=== PATIENT | male | born 1940 | race Caucasian/White ===

== ENCOUNTER 2017-09-27 00:52 | Inpatient (IN) | payer MEDICARE ==
[~2017-09-27] VITALS: Ht 167.6 cm; Wt 81.6 kg
--- OUTSIDE RECORDS SUMMARY | 2017-09-27 00:55 | XMS REPORT ---
Author Author [facility] Address Unknown Phone Unavailable Care Team Providers Care Assistant Director Of Security Name Role Phone KULWINDER HAYDEN Unavailable Unavailable Problems This patient has no known problems. Allergies, Adverse Reactions, Alerts This patient has no known allergies or adverse reactions. Medications This patient has no known medications. Results Test Description Test Time Test Comments Text Results Atomic Results Result Comments PROTHROMBIN TIME/INR 2017-06-30 09:39:00 PROTIME (BEAKER) (test umxi=760) 23.4 seconds 11.7-14.7 INR (BEAKER) (test xlkp=713) 2.1 <=5.9 RECOMMENDED COUMADIN/WARFARIN INR THERAPY RANGESSTANDARD DOSE: 2.0 - 3.0 Includes: PROPHYLAXIS for venous thrombosis, systemic embolization; TREATMENT for venous thrombosis and/or pulmonary embolus.HIGH RISK: Target INR is 2.5-3.5 for patients with mechanical heart valves.
[2017-09-27] MEDS ORDERED: SODIUM CHLORIDE 0.9% 1000ML 2,000 ML ONE (01:24)
[2017-09-27] MEDS ORDERED: SODIUM CHLORIDE 0.9% 1000ML 1,000 ML IV ONE ×3 (01:30→03:15)
[2017-09-27 01:33] LABS: EOSINOPHILS % 0.3 % (0.0-6.0); HEMATOCRIT 25.8 % (38.2-49.6); HEMOGLOBIN 8.8 g/dL (14.0-18.0); LYMPHOCYTES # (AUTO) 0.1 (1.0-3.2); LYMPHOCYTES % 1.8 % (18.0-39.1); MEAN CORPUSCULAR HEMOGLOBIN 29.3 pg (28-32); MEAN CORPUSCULAR HGB CONC 34.1 g/dL (31-35); MONOCYTES # (AUTO) 0.5 (0.2-0.8); MONOCYTES % 8.2 % (4.4-11.3); NEUTROPHILS # (AUTO) 5.4 (2.1-6.9); NEUTROPHILS % 89.4 % (38.7-80.0); PLATELET COUNT 106 x10e3/uL (140-360); RED CELL DISTRIBUTION WIDTH 15.9 % (11.7-14.4)
[2017-09-27 02:07] LABS: BILIRUBIN,URINE NEGATIVE (NEGATIVE); CLARITY,URINE CLEAR (CLEAR); COLOR,URINE YELLOW (YELLOW); KETONES,URINE NEGATIVE (NEGATIVE); LEUKOCYTE ESTERASE ,URINE NEGATIVE (NEGATIVE); NITRITE,URINE NEGATIVE (NEGATIVE); PROTEIN,URINE DIPSTICK NEGATIVE (NEGATIVE); URINE UROBILINOGEN 0.2 mg/dL (0.2 - 1)
--- NOTE | 2017-09-27 02:26 | Diagnostic Imaging Report ---
History:FAll Comparison studies:None Technique: Axial images were obtained from the skull base to the vertex. Coronal and sagittal images reconstructed from the axial data. Intravenous contrast: None Findings: Scalp/skull: No abnormalities. Extra-axial spaces: No masses. No fluid collections. Brain sulci: Mildly prominent. Ventricles: Mild compensatory dilatation. No hydrocephalus. Parenchyma: Small hypodensities in the supratentorial white matter are small vessel ischemic changes. No masses, hemorrhage, acute or chronic cortical vascular insults. Sellar/suprasellar region: No abnormalities. Craniocervical junction: Patent foramen magnum. No Chiari one malformation. Incidental findings: Atherosclerotic calcifications in the carotid siphons . Impression: No acute abnormalities. Chronic findings: 1. Mild generalized volume loss. 2. Mild supratentorial white matter small vessel ischemic changes. Signed by: DR Gaetano Ramachandran M.D. on 09/27/2017 2:23 AM
--- NOTE | 2017-09-27 02:31 | Diagnostic Imaging Report ---
CHEST SINGLE (PORTABLE), 09/27/2017 1:16 AM Technique: CHEST SINGLE (PORTABLE) Comparison: None available. Clinical history: Weakness Findings: Limited portable view with motion artifact and soft tissue attenuation. Impression: 1. Lines/Tubes: Left chest wall dual-lead ICD. Median sternotomy. 2. Mildly enlarged cardiac silhouette. 3. Motion artifact. Low lung volumes with mild bibasilar atelectasis/vascular crowding. No effusion or pneumothorax. Signed by: Dr Concepción Iqbal MD on 09/27/2017 2:28 AM
[2017-09-27 02:35] LABS: AMORPHOUS SEDIMENT,URINE MODERATE (FEW); BACTERIA,URINE FEW /HPF; EPITHELIAL CELLS,URINE FEW /LPF; RBC,URINE 0-5 /HPF (0-5); WBC,URINE (MAN) 0-5 /HPF (0-5)
[2017-09-27 02:38] LABS: ALBUMIN 2.8 g/dL (3.5-5.0); ALBUMIN/GLOBULIN RATIO 0.9 (0.8-2.0); ANION GAP 14.5 mmol/L (8-16); CALCIUM 9.1 mg/dL (8.4-10.2); CREATININE, SERUM 2.27 mg/dL (0.72-1.25); POTASSIUM 3.5 mmol/L (3.5-5.1)
[2017-09-27 02:42] LABS: INR 3.66; PROTHROMBIN TIME 34.2 seconds (11.9-14.5)
[2017-09-27 02:43] LABS: PARTIAL THROMBOPLASTIN TIME 66.9 seconds (23.8-35.5)
[2017-09-27 02:44] LABS: CREATINE KINASE MB 4.8 ng/mL (0-5.0)
[2017-09-27] MEDS ORDERED: NOREPINEPHRINE BITARTRATE/ NS 250 ML IV SCH (02:45)
[2017-09-27 04:32] LABS: HEMATOCRIT 24.6 % (38.2-49.6); HEMOGLOBIN 8.2 g/dL (14.0-18.0)
[2017-09-27] MEDS ORDERED: SODIUM CHLORIDE 0.9% 250ML 250 ML IV ONE (04:45)
[2017-09-27] MEDS ORDERED: SODIUM CHLORIDE 0.9% 250ML 250 ML ONE ×3 (05:19→18:42)
[2017-09-27] MEDS ORDERED: SODIUM CHLORIDE 0.9% 1000ML 1,000 ML IV SCH (06:51)
[2017-09-27] MEDS ORDERED: ONDANSETRON HCL INJ 2 MG/ML VIAL IV PRN (07:00)
[2017-09-27] MEDS ORDERED: HYDROCORTISONE SOD SUCCINATE 100 MG VIAL IV ONE (07:45)
[2017-09-27] MEDS ORDERED: LEFLUNOMIDE20 MG PO (08:13)
--- NOTE | 2017-09-27 10:33 | Diagnostic Imaging Report ---
EXAMINATION: CHEST SINGLE (PORTABLE) INDICATION: \S\SOB \S\Y COMPARISON: 09/27/2017 FINDINGS: AP view TUBES and LINES: Stable dual-lead left chest wall cardiac device. LUNGS: Limited by low lung volumes and body habitus. Pulmonary vascular congestion and mild interstitial edema. Left basilar haziness. PLEURA: No significant pleural effusion or pneumothorax. HEART AND MEDIASTINUM: Enlarged cardiomediastinal silhouette. Aorta is calcified and tortuous. Median sternotomy wires. BONES AND SOFT TISSUES: No acute osseous lesion. Soft tissues are unremarkable. UPPER ABDOMEN: No free air under the diaphragm. IMPRESSION: Enlarged cardiomediastinal silhouette, pulmonary vascular congestion, and mild interstitial edema. Left basilar haziness could represent a small pleural effusion and/or atelectasis. Signed by: Dr. Garfield Barrett MD on 09/27/2017 10:29 AM
[2017-09-27] MEDS ORDERED: METOPROLOL SUCC50 MG PO (11:54)
[2017-09-27] MEDS ORDERED: TAMSULOSIN HCL0.4 MG PO (11:54)
[2017-09-27] MEDS ORDERED: JANTOVEN3 MG PO (11:54)
[2017-09-27] MEDS ORDERED: FOLIC ACID1 MG PO (11:54)
[2017-09-27] MEDS ORDERED: LISINOPRIL2.5 MG PO (11:54)
[2017-09-27] MEDS ORDERED: FINASTERIDE5 MG PO (11:54)
[2017-09-27] MEDS ORDERED: AZELASTINE137 MCG/0. INH (11:54)
[2017-09-27] MEDS ORDERED: KLOR-CON M2020 MEQ PO (11:54)
[2017-09-27] MEDS ORDERED: ATORVASTATIN CA40 MG PO (11:54)
[2017-09-27] MEDS ORDERED: FUROSEMIDE40 MG PO (11:54)
[2017-09-27] MEDS ORDERED: MUPIROCIN22 GM (11:54)
[2017-09-27] MEDS ORDERED: PREDNISONE5 MG PO (11:54)
[2017-09-27] MEDS ORDERED: VANCOMYCIN 1GM/NS 250 ML 250 ML IV ONE (13:00)
[2017-09-27] MEDS ORDERED: HYDROCODONE/APAP 5MG-325MG TAB PO PRN (14:15)
[2017-09-27] MEDS ORDERED: ACETAMINOPHEN 325 MG TAB PO PRN (14:15)
[2017-09-27] MEDS ORDERED: MORPHINE SULFATE 2 MG/ML SYR IV PRN (14:15)
[2017-09-27 14:45] LABS: CREATINE KINASE MB 14.6 ng/mL (0-5.0)
[2017-09-27] MEDS ORDERED: FUROSEMIDE INJ 10 MG/ML 4 ML VIAL IV SCH (15:00)
[2017-09-27] MEDS ORDERED: ALBUTEROL/IPRATROPIUM 3 ML NEB NEB SCH (15:00)
[2017-09-27] MEDS ORDERED: AZELASTINE HCL 137 MCG NASAL SPRAY NS SCH (17:00)
[2017-09-27] MEDS ORDERED: CEFEPIME HCL 1 GM VIAL IV SCH (17:00)
[2017-09-27] MEDS ORDERED: CLINDAMYCIN 600MG/D5W 50ML 50 ML IV SCH (18:00)
[2017-09-27] MEDS ORDERED: HYDROCORTISONE SOD SUCCINATE 100 MG VIAL IV SCH ×2 (18:00→22:00)
[2017-09-27 19:05] VITALS: BP 81/34
--- NOTE | 2017-09-27 19:12 | Consultation ---
DATE OF CONSULTATION: September 27, 2017 CARDIOLOGY CONSULTATION REASON FOR CONSULTATION: Evaluate cardiac status, hypertension. HISTORY OF PRESENT ILLNESS: Mr. Encarnacion is a 77-year-old gentleman with a past medical history of hypertension, hypercholesterolemia, coronary artery disease with prior history of CABG in 1990 followed by a massive heart attack in 2012 where he has had AVR and redo bypass at [facility], a history of systolic CHF with underlying EF of about 20%, a history of ICD implantation, aortic valve replacement along with remote history of vibrio vulnificus septic shock with extensive skin grafting of the bilateral upper extremities back in December of 2014, who presents to this institution with hypotension, malaise, low-grade fevers, chills, and is noted to be in septic shock also with acute blood loss anemia. Patient has been dealing with severe redness, pain, stretching in the bilateral lower extremities below his knees and has developed cellulitis. He has been receiving diuretics 3 times a day, and he has been taking all his medications. Patient came in with severe hypotension with blood pressure 60s-70s/over 40s and received 3 liters IV fluids and was also noted to be in acute anemia with hemoglobin of 8.8 and received 2 units of packed red blood cells. Patient's blood pressure is marginal at 90s/50s with heart rate in the 90s-100s in atrial fibrillation. Patient also interestingly has been reporting tissue loss over the right thumb with ischemic discoloration and gangrenous changes over his right thumb going to the base of his palm. He has alerted his primary compliance monitor and other physicians taking care of him and has just been wanting some local care. He was not told that this was gangrene, and I expressed my concern that he has got gangrene and ischemia of the upper extremity at the present time. Patient is in critical condition. He is reporting exacerbation of dyspnea and is having difficulty to complete a full sentence and catch his breath. He denies any chest pain or discomfort or any symptom suggestive of angina. In this setting, he had an EKG which showed the atrial fibrillation, right bundle branch block, and also noted to have a troponin first set of 0.491 with normal MB at 4.8 and CK of 614. Patient is currently in critical condition. PAST MEDICAL HISTORY 1. Hypertension, essential. 2. Hypercholesterolemia. 3. Systolic heart failure secondary to advanced ischemic cardiomyopathy. 4. Coronary artery disease with prior history of CABG in 1990 followed by redo CABG in 2013, that following massive heart attack with concomitant bioprosthetic aortic valve replacement 2012. 5. Rheumatoid arthritis. 6. 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 7. Atrial fibrillation without anticoagulation therapy. PAST SURGICAL HISTORY 1. History of right total knee replacement. 2. History of CABG in 1990. 3. Aortic valve surgery with CABG in 2012. 4. History of dual-chamber ICD implantation. FAMILY HISTORY: Mother at the age of 86 had Alzheimer's dementia. Father at the age of 83, had CABG and was on hemodialysis. SOCIAL HISTORY: He is . He is a nonsmoker. Remote history of alcohol. Denies any illicit drug use. ALLERGIES: NO KNOWN DRUG ALLERGIES. HOME MEDICATIONS: Include 1. Atorvastatin 40 mg daily. 2. Lasix 40 mg t.i.d. 3. Lisinopril 2.5 mg daily. 4. Toprol-XL 50 mg daily. 5. Potassium chloride 40 mEq t.i.d. 6. Prednisone 7.5 mg daily. 7. Tamsulosin 0.4 mg daily. 8. Coumadin 3 mg daily. 9. Folate 1 tablet daily. REVIEW OF SYSTEMS GENERAL: Positive for chills, malaise, overall fatigue. HEENT: No headache, visual complaints, sore throat, stuffy nose. RESPIRATORY: Has dyspnea at rest. Has a nonproductive cough. CARDIOVASCULAR: Denies any chest pain. Positive for orthopnea. No PND. Positive for severe lower extremity edema of bilateral lower extremities. Denies any subjective palpitations despite atrial fibrillation. GI: Positive for nausea. No vomiting, bright red blood per rectum or melena. Does report early satiety. : Does report decreased urination over the past 4 days and denies any pyuria but does report dysuria. MUSCULOSKELETAL: Positive for severe leg edema and pain in his right hand and over the right thumb region. SKIN: Positive for skin grafting of the bilateral upper extremities and severe discoloration with purulence and drainage of the bilateral lower extremities below the knee and black fingertip over his right thumb. NEUROLOGIC: Positive for neuropathy. No TIA or stroke. REMAINDER OF REVIEW OF SYSTEMS: Negative otherwise mentioned. PHYSICAL EXAMINATION VITAL SIGNS: Height of 66 inches, weight of 180 pounds. BMI is 29.1. Temperature of 99.0, blood pressure 185/65, pulse of 92, respiratory rate of 26, O2 sat 87% on 2 liters nasal cannula. IN GENERAL: This is an acute on chronically ill gentleman who is currently in mild to moderate respiratory distress. HEENT: Normocephalic, atraumatic. Pupils are equally round and reactive to light. Extraocular movements are intact. Oropharynx is clear. NECK: There are bilateral carotid bruits with elevation of jugular pulsations at the angle of the mandible. CARDIOVASCULAR: Irregularly irregular rate and rhythm. Normal S1 and S2. A 2/6 systolic murmur at the right upper sternal border. A 2/6 holosystolic murmur left lower sternal border. LUNGS: Show crackles one-third up the lung mercado and decreased air entry. There is a midline sternotomy scar, and there is a left dual-chamber ICD site in the chest wall. ABDOMEN: Soft, nontender, nondistended, with normoactive bowel sounds. BACK: No costovertebral angle tenderness. EXTREMITIES: Notable for bilateral upper arm skin grafting scars and disfiguration. There are absent bilateral radial pulses. Extremities reveal 1+ edema. There is a right total knee replacement scar. There is a right saphenous vein graft harvest scar. There is 3+ edema with severe redness, purulence, erythema below the knees bilaterally. NEUROLOGIC: Patient is conversant, moves all 4 extremities. LABS: White count 6.1, hemoglobin 8.8, hematocrit 25.8, platelets of 106. Sodium 123, potassium 3.5, chloride 93, bicarb 19, BUN 49, creatinine 2.27, glucose of 100. Lactate of 24. AST 34, ALT 20, alk phos 47, total protein 5.9, albumin of 2.8. Troponin of 0.491. INR is 3.66. Brain CT shows mild small-vessel ischemic changes. Chest x-ray shows enlarged cardiomegaly, mediastinal silhouette and some edema and left basilar haziness and pleural effusion. EKG reveals atrial fibrillation, right bundle branch block and nonspecific ST-T wave changes. DIAGNOSES 1. Septic shock with multiorgan dysfunction. 2. Severe lactic acidosis secondary to number 1. 3. Acute kidney injury, oliguric. 4. Acute blood loss anemia. 5. [id number] myocardial infarction. 6. Coronary artery disease with history of bypass grafting, redo bypass grafting and aortic valve replacement. 7. Gangrene of the right thumb and hand ischemia. 8. Severe bilateral lower extremity cellulitis. 9. Acute on chronic decompensated systolic heart failure. PLAN/RECOMMENDATIONS 1. From a cardiovascular standpoint, patient appears to be in critical condition with multiorgan failure dysfunction. Patient is in critical condition and is in extremis. 1. Will need to go ahead and have a multidisciplinary course of action with multiple consultants including critical care, renal, etc. 2. Low threshold for intubation. 3. Will give 80 IV Lasix as a measure to hopefully prevent him from being intubated. 4. Will follow his H\T\H. Did note to be severely anemic, has not been previously told of that process. 5. The patient denies ever being told having kidney issues. 6. In terms of the right hand, the goal is to first stabilize shock but may need transfer to a higher level of care and vascular involvement in light of his right thumb gangrene. 7. Agree with broad-spectrum antibiotic therapy. 8. Queen with strict I's and O's. 9. In terms of his coronary status, I believe the troponin elevation is secondary to demand ischemia and is not a candidate for catheterization at the present time in light of other issues and high risk for contrast nephropathy end-stage renal progression. 10. A very long evaluation and visit with the patient including discussion with the patient and family and discussion with primary team. 11. Will have low threshold and recommending transfer to higher level of care in light of all these active clinical issues. Job#: [id number] EV
[2017-09-27] MEDS ORDERED: NON-FORMULARY MEDICATION (Atorvastatin Calcium 40 MG) PO SCH (21:00)
[2017-09-27] MEDS ORDERED: ATORVASTATIN 40 MG TAB PO SCH (21:00)
--- NOTE | 2017-09-27 22:34 | Consultation ---
DATE OF CONSULTATION: September 27, 2017 REASON FOR CONSULTATION: To evaluate and assist in treating the patient with sepsis and cellulitis of the legs. Information is gathered from the current medical record. I interviewed the patient and his at the bedside. HISTORY OF PRESENT ILLNESS: He is a 77-year-old male with a history of coronary artery disease, hypertension. There is a history of congestive heart failure, myocardial infarction, benign prostatic hypertrophy, osteoarthritis, chronic back pain and hip pain. He has had bilateral knee replacement surgeries with 2 surgeries on both knees each. He presented to the emergency room with complaints of swelling of his lower extremities with increasing redness and a subjective sense of fevers associated with progressively worsening shortness of breath. The symptoms have developed over the past week or so. At presentation, he is noted with a blood pressure of 61/48, a temperature of 97.9 to 99 degrees Fahrenheit. The reports that she recorded a temperature of 99.6 degrees Fahrenheit at home. His CBC showed a white count of 6000 and hemoglobin of 8.8 and a platelet count of 106,000. His serum creatinine is found to be 2.2. He does give a history of chronic kidney disease. There is concern for sepsis associated with a cardiogenic-related hypotension. MEDICAL HISTORY: As reported above. He has had coronary artery bypass surgery twice. There is no report of diabetes mellitus. No report of liver disease or CVA. SOCIAL HISTORY: He currently does not smoke or drink. He denies other forms of recreational drug use. FAMILY HISTORY: Positive for hypertension and coronary artery disease. ALLERGIES: HE HAS NO KNOWN ALLERGIES. MEDICATIONS: He has received a dose of vancomycin. The rest of his medications are per the medication administration report. REVIEW OF SYSTEMS: The patient is dyspneic at rest. He has no chest pain. No headache or neck stiffness. No sore throat. No complaint of chest or abdominal pain. No nausea, vomiting, or diarrhea. No frequency or dysuria. There is pain in his legs. PHYSICAL EXAMINATION: GENERAL: He is an adult male. He is alert, responsive. He appears ill, very dyspneic at rest. VITAL SIGNS: Maximum temperature recorded since presentation is 99 degrees Fahrenheit. His blood pressure currently 94/77, pulse rate 99, respiratory rate 26 per minute. HEENT: Showed no gross pallor. No obvious icterus. No oropharyngeal lesions. NECK: Supple. CHEST: Symmetric. There is mild wheezing in the lung mercado. There is a midline scar from previous cardiothoracic surgery. A pacemaker is in the left chest wall. The site is without erythema or ulceration. ABDOMEN: Full, soft, nontender with normal bowel sounds. EXTREMITIES: There is gross edema of both lower extremities with acute erythema and superficial ulceration with serous drainage from the legs. LABORATORY DATA: His serum creatinine is 2.2, BUN 49. His serum sodium 123. His liver function tests are unremarkable. His CK ranged from 614 to 1510, CK-MB 4.8 to 14.6. His troponin has increased from 0.4 to 1.0. His white count is 6.0 with hemoglobin 8.8, platelet count 106,000. Differentials on the white count 89% neutrophils. His urinalysis appears unremarkable. Chest x-ray reports cardiomegaly with mild interstitial edema in the lungs, a small pleural effusion of the left lung base. IMPRESSION: This 77-year-old male probably has congestive heart failure. He is hypotensive. He has severe cellulitis of both lower extremities. He may be septic associated with his hypotension present at the time of presentation secondary to the cellulitis of his lower extremities. He has renal failure. I suggest we continue vancomycin by serum levels, add cefepime, adjust it for renal function. Will monitor clinical response of treatment. The patient is anticipating discharge to another facility to continue treatment. Please note Dr. Lo was consulted to see this patient. I am covering for Dr. Lo. I have discussed the findings and treatment with the patient and his at the bedside as well as with the emergency room physicians. Total care time 40 minutes. Job#: [id number]
[2017-09-28] MEDS ORDERED: PREDNISONE 5 MG TAB PO SCH (09:00)
--- OUTSIDE RECORDS SUMMARY | 2017-11-05 16:14 | XMS REPORT | Clinical Summary ---
Author Author RICHY 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 Disp. Refills Start End Date Status Date nitroglycerin (NITROSTAT) Place 0.4 mg under the Active 0.4 MG SL tablet tongue every 5 (five) minutes as needed. ascorbic Acid (VITAMIN C) Take 500 mg by mouth Active 500 mg CpER SR capsule daily. finasteride (PROSCAR) 5 Take 5 mg by mouth daily. Active mg tablet folic acid (FOLVITE) 1 MG Take 1 mg by mouth daily. Active tablet TAMSULOSIN HCL Take 0.4 mg by mouth 2 Active (TAMSULOSIN ORAL) (two) times daily . multivitamin capsule Take 0.5 capsules by Active mouth 2 (two) times daily . lisinopril Take 2.5 mg by mouth Active (PRINIVIL,ZESTRIL) 2.5 MG daily. tablet predniSONE (DELTASONE) 5 Take 7.5 mg by mouth 03/18/20 Active MG tablet daily . 13 atorvastatin (LIPITOR) 40 Take 40 mg by mouth Active MG tablet daily. fluticasone (FLONASE) 50 2 sprays by Nasal route Active mcg/actuation nasal spray daily. melatonin 3 mg Tab Take 1 tablet by mouth Active Medrol nightly. leflunomide (ARAVA) 20 MG Take 1 tablet (20 mg 0 06/09/20 Active tablet total) by mouth daily 16 RESUME ON June 16, NOT SOONER. furosemide (LASIX) 40 MG Take 1 tablet (40 mg 60 tablet 3 06/09/20 Active tablet total) by mouth 2 (two) 16 times daily. aspirin 81 MG EC tablet Take 81 mg by mouth Active daily. cholecalciferol, vitamin Take 1,000 Units by mouth Active D3, 1,000 unit capsule daily. ferrous sulfate 140 mg Take by mouth. Active (45 mg iron) TbER warfarin (COUMADIN) 3 MG Take 3 mg by mouth daily. Active tablet metoprolol (TOPROL-XL) 50 . 05/27/20 Active MG 24 hr tablet 17 KLOR-CON SPRINKLE 10 mEq . 04/28/20 Active CR capsule 17 cholecalciferol, vitamin Take 5,000 Units by mouth 06/16/20 Discontin D3, 5,000 unit Tab daily. 17 ued ferrous sulfate 325 (65 Take 325 mg by mouth 06/16/20 Discontin FE) MG tablet daily with breakfast. 17 ued metoprolol (TOPROL-XL) 25 Take 1 tablet (25 mg 60 tablet 11 06/09/20 06/09/20 MG 24 hr tablet total) by mouth 2 (two) 16 17 times daily. potassium chloride Take 1 tablet (10 mEq 60 tablet 11 06/09/2006/09 (KLOR-CON) 10 MEQ CR total) by mouth 2 (two) 16 17 tablet times daily While taking lasix. warfarin (COUMADIN) 10 MG Take 3 mg by mouth daily. 06/16/20 Discontin tablet 17 ued metoprolol (TOPROL-XL) 25 Take 12.5 mg by mouth 2 08/01/19 Discontin MG 24 hr tablet (two) times daily . 18 ued potassium chloride Take 10 mEq by mouth 3 08/01/19 Discontin (KLOR-CON) 10 MEQ CR (three) times daily. 18 ued tablet amoxicillin-clavulanate Take 1 tablet by mouth 4 tablet 0 10/10/19 10/12/19 (AUGMENTIN) 875-125 mg every 12 (twelve) hours 18 18 per tablet for 2 days. Active Problems Problem Noted Date Heart failure (HCC) 09/28/2017 Cellulitis of left leg 06/06/2016 Ischemic cardiomyopathy EF 30-34% per TTE 03/14/2015, EF 25-29% per TTE 201511/22/2015 SVT (supraventricular tachycardia) occasional runs per holter 12/2013 Atrial fibrillation (HCC), first discovered on EKG done pre-op for AICD, already on coumadin 01/18/2016 Pulmonary embolism / DVT after ACB surgery / IVC filter - [facility] Systolic congestive heart failure, NYHA class 2 (HCC) 01/31/2016 S/P implantation of automatic cardioverter/defibrillator (AICD), DDD AICD, 01/31/2016 BSX, Left, 01/31/2016 Cardiac disease 03/10/2013 Orthostatic hypotension 03/04/2013 Arthralgia 03/04/2013 Impaired mobility and ADLs 03/04/2013 S/P thoracic aortic aneurysm repair - 02/22/2013 - [facility] - Dr. Frederick 2012 S/P AVR (aortic valve replacement) - 02/22/2013 - [facility] - Dr. 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) 02/17/2013 BPH with obstruction/lower urinary tract symptoms 02/17/2013 Aortic valve stenosis 02/17/2013 RBBB (right bundle branch block with left anterior fascicular block) 2012 Encounters Date Type Specialty Care Team Description 10/13/2017 Documentation Cardiology Vesta Flower FNP 09/27/2017 Hospital Intensive Care Birdie Willett MD Acute [place], subendocardial, - Encounter Susy Pearson MD initial episode of care 10/09/2017 (HCC) 09/27/2017 Orders Only General Internal Medicine 08/01/2017 Emergency Emergency Medicine Jodi Almendarez MD Laceration of right index finger without foreign body without damage to nail, initial encounter (Primary Dx) 06/30/2017 [facility] Elisa Kee Encounter MD 06/30/2017 Procedure Pass 06/29/2017 Anesthesia GautJohana MD Event 06/16/2017 Hospital Pre-Admission Testing Elisa Kee Encounter MD 06/16/2017 Orders Only Mariaa Ramirez PA after 11/04/2016 Family History Medical History Relation Name Comments Heart disease Father Hypertension Father Arthritis Mother Relation Name Status Comments Father Mother Social History Tobacco Use Types Packs/Day Years Used Date Never Smoker Smokeless Tobacco: Never Used Alcohol Use Drinks/Week oz/Week Comments No Sex Assigned at Date Recorded Not on file Last Filed Vital Signs Vital Sign Reading Time Taken Blood Pressure 102/65 10/08/2017 4:45 PM CDT Pulse 61 10/08/2017 4:45 PM CDT Temperature 36.7 C (98.1 F) 10/09/2017 12:10 PM CDT Respiratory Rate 22 10/08/2017 6:45 PM CDT Oxygen Saturation 99% 10/08/2017 4:45 PM CDT Inhaled Oxygen - - Concentration Weight 86.1 kg (189 lb 13.1 oz) 10/09/2017 6:00 AM CDT Height 170.2 cm (5' 7") 09/27/2017 11:00 PM CDT Body Mass Index 29.73 10/09/2017 6:00 AM CDT Plan of Treatment Health Maintenance Due Date Last Done Comments INFLUENZA VACCINE 04/12/2018 Implants Implanted Type Area Machine Buffer Device Expiration Model / Identifier Date Serial / Lot Sternal Zipfix,With Needle Sterile Cardiovasc 10/11/2017 08.501.001 Pack Of 5 - [id number] ular .05S / Implanted: Qty: 1 on 02/22/2013 by / Cayetano Frederick MD [id number] Sternal Zipfix,With Needle Sterile Cardiovasc N/A: Chest [employer] 11/09/2017 08.501.001 Pack Of 5 - [id number] ular Wall .05S / Implanted: Qty: 1 on 02/23/2013 by [id number] / Abhay Shah MD Graft,Gelweave Straight [id number] - Graft/Patc N/A: Aorta TERUMO 07/2015 [id number] / [id number] CARDIOVASCULAR [id number] Implanted: Qty: 1 on 02/22/2013 by SYSTEMS / Cayetano Frederick MD [id number] [place],Ptfe 1 X 6" - [id number] Graft/Patc N/A: Heart 02/22/2017 [id number] / Implanted: Qty: 1 on 02/22/2013 by h / Cayetano Frederick MD [id number] Valve,Trifecta 23mm Tissue Aortic Valves N/A: Heart [facility] [employer] 06/14/2014 TF-23A / Supra Annular Stented Titanium Strl INC [id number] / - [id number] Implanted: Qty: 1 on 02/22/2013 by Cayetano Frederick MD [facility] / [id number] 52cm [place] 12/18/2017 7741 52CM Implanted: Qty: 1 on 01/31/2016 SCIENTIFIC / [id number] / [employer] [place] / [id number] 64cm / Ra [place] 08/09/2016 0276 64CM Implanted: Qty: 1 on 01/31/2016 SCIENTIFIC / [id number] / Inogen [address] / [id number] [place] 05/01/2017 [id number] / Implanted: Qty: 1 on 01/31/2016 SCIENTIFIC [id number] / Procedures Procedure Name Priority Date/Time Associated Diagnosis Comments RI LUDY WND BODY Routine 08/25/2017 Results for this <2.5CM 4:20 PM SCOURER procedure are in the results section. after 11/04/2016 Results * EKG-SCANNED (10/12/2017 2:01 PM) * RHYTHM STRIP - SCAN (10/12/2017 2:01 PM) * Daily Prothrombin time/INR while on warfarin (10/09/2017 4:40 AM) Only the most recent of 14 results within the time period is included. Component Value Ref Range Protime 28.0 (H) 11.7 - 14.7 seconds INR 2.6 <=5.9 Specimen Performing Laboratory [place] [address] Narrative RECOMMENDED COUMADIN/WARFARIN INR THERAPY RANGES STANDARD DOSE: 2.0 - 3.0 Includes: PROPHYLAXIS for venous thrombosis, systemic embolization; TREATMENT for venous thrombosis and/or pulmonary embolus. HIGH RISK: Target INR is 2.5-3.5 for patients with mechanical heart valves. While on warfarin. * Basic Metabolic Panel (10/09/2017 4:40 AM) Only the most recent of 27 results within the time period is included. Component Value Ref Range Sodium 138 136 - 145 meq/L Potassium 3.8 3.5 - 5.1 meq/L Chloride 99 98 - 107 meq/L CO2 31 (H) 22 - 29 meq/L BUN 25 (H) 7 - 21 mg/dL Creatinine 0.82 0.57 - 1.25 mg/dL Glucose 90 70 - 105 mg/dL Calcium 8.9 8.4 - 10.2 mg/dL EGFR 91Comment: ESTIMATED GFR IS NOT ACCURATE mL/min/1.73 sq m CREATININE CLEARANCE IN PREDICTING GLOMERULAR FILTRATION RATE. ESTIMATED GFR IS NOT APPLICABLE FOR DIALYSIS PATIENTS. Specimen Performing Laboratory Blood [address] [address] * POC-Glucose meter (10/08/2017 12:22 PM) Only the most recent of 38 results within the time period is included. Component Value Ref Range POC-Glucose Meter 100Comment: TESTED AT [address] 70 - 110 mg/[place] [address] Specimen Performing Laboratory Blood [address] [address] * Phosphorus (10/07/2017 5:00 PM) Only the most recent of 5 results within the time period is included. Component Value Ref Range Phosphorus 2.9 2.3 - 4.7 mg/dL Specimen Performing Laboratory Blood - [place], [address] [address] * Magnesium (10/07/2017 5:00 PM) Only the most recent of 7 results within the time period is included. Component Value Ref Range Magnesium 2.2 1.6 - 2.6 mg/dL Specimen Performing Laboratory Blood - [place], [address] [address] * CBC with platelet count + automated diff (10/06/2017 5:54 AM) Only the most recent of 6 results within the time period is included. Component Value Ref Range WBC 8.8 3.5 - 10.5 K/ L RBC 3.59 (L) 4.63 - 6.08 M/ L Hemoglobin 10.2 (L) 13.7 - 17.5 GM/DL Hematocrit 32.3 (L) 40.1 - 51.0 % MCV 90.0 79.0 - 92.2 fL MCH 28.4 25.7 - 32.2 pg MCHC 31.6 (L) 32.3 - 36.5 GM/DL RDW 16.3 (H) 11.6 - 14.4 % Platelets 247 150 - 450 K/CU MM MPV 11.1 9.4 - 12.4 fL nRBC 0 0 - 0 /100 WBC % Neutros 82 % % Lymphs 6 % % Monos 8 % % Eos 3 % % Baso 0 % # Neutros 7.21 (H) 1.78 - 5.38 K/ L # Lymphs 0.56 (L) 1.32 - 3.57 K/ L # Monos 0.74 0.30 - 0.82 K/ L # Eos 0.22 0.04 - 0.54 K/ L # Baso 0.01 0.01 - 0.08 K/ L Immature 1 0 - 1 % Granulocytes-Relative Specimen Performing [place] [address] * CBC with platelet count + automated diff (10/06/2017 5:54 AM) Only the most recent of 6 results within the time period is included. Specimen Performing Laboratory Blood Narrative The following orders were created for panel order CBC with platelet count + automated diff. Procedure Abnormality Status --------- - ------ CBC with platelet count ...[[id number]]AbnormalFinal result Please view results for these tests on the individual orders. * XR chest 1 view portable / bedside (10/02/2017 5:50 AM) Only the most recent of 5 results within the time period is included. Specimen Performing Laboratory GE RIS Narrative FINAL REPORT RAD, CHEST, 1 VIEW, NON DEPT INDICATION: chf COMPARISON: Prior day's exam FINDINGS: Portable frontal view of the chest. IMPRESSION: Support Lines: Stable right IJ central venous catheter. Lungs and pleura: Basilar subsegmental atelectasis noted bilaterally. Trace left effusion. No pneumothorax. Heart and mediastinum: Stable contours. Stable surgical changes. Additional findings: None. Signed: JR Erickson Robert MD Report Verified Date/Time:10/02/2017 06:08:02 Reading Location: [facility] C0[facility] CT Body Reading Room Procedure Note Interface, External Ris In - 10/02/2017 6:10 AM CDT FINAL REPORT RAD, CHEST, 1 VIEW, NON DEPT INDICATION: chf COMPARISON: Prior day's exam FINDINGS: Portable frontal view of the chest. IMPRESSION: Support Lines: Stable right IJ central venous catheter. Lungs and pleura: Basilar subsegmental atelectasis noted bilaterally. Trace left effusion. No pneumothorax. Heart and mediastinum: Stable contours. Stable surgical changes. Additional findings: None. Signed: JR Erickson Robert MD Report Verified Date/Time: 10/02/2017 06:08:02 Reading Location: [facility] C013Y CT Body Reading Room * TRANSFUSION SERVICE REPORT - SCAN (10/01/2017 5:43 PM) Only the most recent of 5 results within the time period is included. * Potassium (10/01/2017 7:47 AM) Only the most recent of 2 results within the time period is included. Component Value Ref Range Potassium 3.4 (L) 3.5 - 5.1 meq/L Specimen Performing Laboratory Blood [address] [address] Narrative Check Serum Potassium level 2 hours after oral potassium replacement completed or 30 min after intravenous potassium replacement. * B-type Natriuretic Factor (BNP) (10/01/2017 3:15 AM) Only the most recent of 4 results within the time period is included. Component Value Ref Range BNP 4016 (H) 0 - 100 pg/mL Specimen Performing Laboratory Blood - Central Venous [facility] [address] [place] [address] * Prepare plasma (09/30/2017 11:54 PM) Component Value Ref Range Unit ABO A Neg UNIT NUMBER [id number] Status TRANSFUSED Blood Bank Product FFP PRODUCT CODE [id number] Specimen Performing Laboratory Blood [place] * Vancomycin level, random (09/30/2017 10:04 PM) Component Value Ref Range Vancomycin Rm 13.7 ug/mL Specimen Performing Laboratory Blood - Central Venous [facility] [address] [place] [address] Narrative Reference Range: No Normals Please draw 30 min before next dose. If level>20, hold vanc and contact MD/ pharmacist. * Transfuse plasma (09/29/2017 12:35 PM) Only the most recent of 2 results within the time period is included. * Incubated 1:1 Mixing Study (09/29/2017 7:19 AM) Component Value Ref Range Immediate PT 67.7 (H) 11.7 - 14.7 seconds Immediate PTT 78.3 (H) 22.5 - 36.0 seconds Immediate 1:1 Mix PT 16.6 (H) 11.7 - 14.7 seconds Immediate 1:1 Mix PTT 40.0 (H) 22.5 - 36.0 seconds 1:1 MIX, 1 HOUR INC PT 16.7 seconds 1:1 MIX, 1 HOUR INC PTT 41.3 seconds MIXING STUDY PATHOLOGIST Prolonged PT and PTT with incomplete correction on INTERPRETATION 1:1 mix suggestive of factor deficiency and/or the presence of a weak lupus anticoagulant. Pathologist: Griselda Seth MD (electronic signature) Specimen Performing Laboratory Blood - Central Venous [facility] [address] [place] [address] Narrative Patient receiving warfarin prior to admission, no heparin. * 1:1 MIXING STUDY, NON-INCUBATED (09/29/2017 7:19 AM) Component Value Ref Range Protime 63.3 (H) 11.7 - 14.7 seconds PTT 69.0 (H) 22.5 - 36.0 seconds PT 1/1 Mix 17.1 (H) 11.7 - 14.7 SECS PTT 1/1 Mix 38.8 (H) 22.5 - 36.0 SECS Specimen Performing Laboratory Blood - Central Venous [facility] [address] [place] [address] * Lactic acid, venous, whole blood Daily (09/29/2017 3:25 AM) Only the most recent of 5 results within the time period is included. Component Value Ref Range Lactate, Venous 1.6Comment: Specimen slightly hemolyzed 0.5 - 2.2 mmol/L Specimen Performing Laboratory Blood - Central Venous [facility] [address] [place] [address] Narrative Effective 11/14/2015: Units/Reference Range Change New: 0.5-2.2 mmol/LPrevious: 5-20 mg/dL * Troponin I (09/28/2017 4:46 PM) Only the most recent of 4 results within the time period is included. Component Value Ref Range Troponin I 0.74 (HH) 0.00 - 0.03 ng/mL Specimen Performing Laboratory Blood [address] [address] Narrative Troponin I (TnI) levels must be interpreted in the context of the presenting symptoms and the clinical findings. Elevated TnI levels indicate myocardial damage, but are not specific for ischemic heart disease. Elevated TnI levels are seen in patients with other cardiac conditions (including myocarditis and congestive heart failure), and slight TnI elevations occur in patients with other conditions, including sepsis, renal failure, acidosis, acute neurological disease, and persistent tachyarrhythmia. * ECHOCARDIOGRAM REPORT - SCAN (09/28/2017 12:51 PM) * Creatine Kinase (CK), Total and MB (09/28/2017 10:40 AM) Component Value Ref Range Total CK 1249 (H) 29 - 200 U/L CK-MB 8.0 (H) 0.0 - 6.6 ng/mL MB Relative Index 0.6 % Specimen Performing Laboratory Blood [address] [address] Narrative CK-MB Reference Range: <6.7Normal 6.7-10.0Borderline >10.0 Abnormal * 2D Echo W/Doppler (Sepsis Protocol) (09/28/2017 7:42 AM) Component Value Ref Range Ejection Fraction Specimen Performing Laboratory [facility] MK[facility]ESSON CPA Narrative Transthoracic Echocardiography Report (TTE) Demographics Patient NameSTEVENS, CHARLESDate of Study09/28/2017 ZORAIDA Male Visit [id number] Unknown Room [id number] Number Date of 1940Referring Lauri Catalan Physician 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 Clinical History Abdominal Aortic Aneurysm Valvular heart disease, aortic stenosis DVT Hypertension High cholesterol Myocardial Infarction Ischemic Cardiomyopathy Pulmonary embolism SVT RBBB S/P AICD S/P CABG S/P L Cath/coronary ango/Poss PCI S/P AATA S/P AVR 23mm [facility] Owen Trifecta bioprosthetic HGB 93.6 HCT 29.6 % Contrast Medium: Definity. Amount - 3 ml Height: 67 inches Weight: 98.43 kg (217 lbs) BSA: 2.09 m^2 BMI: 33.99 kg/m^2 HR: 101 bpm BP: 83/60 mmHg Summary Left ventricle is dilated with severely reduced systolic function. LVEF 20-24%. Right ventricle is grossly normal in size with reduced systolic function. Severe left atrial dilatation. Well-seated bioprosthetic aortic valve with normal function and trace regurgitation. Mild mitral regurgitation. Tobd-lc-dzrhjpsw tricuspid regurgitation. Estimated PASP 45-50mmHg. No pericardial effusion. Previous Study In comparison with the prior exam 03/01/2013 the following changes are noted: worsening LVEF, PAP higher . Signature Findings Left Ventricle The left ventricle is chamber size (by vol index ) is severely enlarged (male - LVED vol >100ml/m2). Xpmo-cx-nxrrbtdo concentric LV hypertrophy. Global LV systolic function severely reduced . Estimated LVEF by qualitative assessment is severely reduced (20-24%) . LV endocardium is adequately visualized with IV ultrasound enhancing agent. Left AtriumLA size is severely enlarged (>48 ml/m2) . Right VentricleRV pacing wire is visualized . RV chamber size is normal . Global RV systolic function is reduced. Right Atrium RA pacing wire is visualized . RA cavity size is normal . Aortic Valve A stented biologic AoV prosthesis is visualized . The prosthetic AoV appears well- seated. Prosthetic AoV regurgitaton is trace. Prosthetic AR locations(s) are of indeterminate location and mechanism . Mild AoV cusp thickening. Mitral Valve Mild MV leaflet thickening. Mild mitral regurgitation. Moderate mitral annular calcification. MV gradients are mildly increased in part due to mitral annular calcification . Tricuspid OuxmwMykb-ly-ncyzfzua tricuspid regurgitation. Estimated peak systolic PA pressure is 45-50 mmHg . Pulmonic Valve Trace pulmonary regurgitation. PV is not well visualized. AortaAortic root size (SInus of Valsalva diameter) is normal . PericardiumNo pericardial effusion is visualized. IVC/SVC/PA/PV/PleuralThe estimated RA pressure by IVC dynamics 16-20mmHg . Chambers/Structures Left Atrium LA Dimension: 5.76 cmLA Area: 32.03 cm^2 LA Volume: 127.98 ml LA Vol. Index: 61 ml/m^2 Left Ventricle LVIDd: 5.24 cm LV Septum Diastolic: 1.58 cm LV PW Diastolic: 1.45 cm LVEDV Beach's:224.59 ml LVEDVI: 107 ml/m^2 Aorta Ao Root S of Elicia.: 3.88 cm Doppler/Quantitative Measurements Mitral Valve Mean Velocity: 0.66 m/s Mean Gradient: 2.21 mmHg MV VTI: 22.42 cm MV Otto. 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 Clinical History Abdominal Aortic Aneurysm Valvular heart disease, aortic stenosis DVT Hypertension High cholesterol Myocardial Infarction Ischemic Cardiomyopathy Pulmonary embolism SVT RBBB S/P AICD S/P CABG S/P L Cath/coronary ango/Poss PCI S/P AATA S/P AVR 23mm St Owen Trifecta bioprosthetic HGB 93.6 HCT 29.6 % Contrast Medium: Definity. Amount - 3 ml Height: 67 inches Weight: 98.43 kg (217 lbs) BSA: 2.09 m^2 BMI: 33.99 kg/m^2 HR: 101 bpm BP: 83/60 mmHg Summary Left ventricle is dilated with severely reduced systolic function. LVEF 20-24%. Right ventricle is grossly normal in size with reduced systolic function. Severe left atrial dilatation. Well-seated bioprosthetic aortic valve with normal function and trace regurgitation. Mild mitral regurgitation. Tgdm-pl-ztcwexyv tricuspid regurgitation. Estimated PASP 45-50mmHg. No pericardial effusion. Previous Study In comparison with the prior exam 03/01/2013 the following changes are noted: worsening LVEF, PAP higher . Signature Findings Left Ventricle The left ventricle is chamber size (by vol index) is severely enlarged (male - LVED vol >100ml/m2). Xhly-gc-xrhtjfhu concentric LV hypertrophy. Global LV systolic function severely reduced . Estimated LVEF by qualitative assessment is severely reduced (20-24%) . LV endocardium is adequately visualized with IV ultrasound enhancing agent. Left Atrium LA size is severely enlarged (>48 ml/m2) . Right Ventricle RV pacing wire is visualized . RV chamber size is normal . Global RV systolic function is reduced. Right Atrium RA pacing wire is visualized . RA cavity size is normal . Aortic Valve A stented biologic AoV prosthesis is visualized . The prosthetic AoV appears well-seated. Prosthetic AoV regurgitaton is trace. Prosthetic AR locations(s) are of indeterminate location and mechanism . Mild AoV cusp thickening. Mitral Valve Mild MV leaflet thickening. Mild mitral regurgitation. Moderate mitral annular calcification. MV gradients are mildly increased in part due to mitral annular calcification . Tricuspid Valve Kypc-lm-sylxqyxb tricuspid regurgitation. Estimated peak systolic PA pressure is 45-50 mmHg . Pulmonic Valve Trace pulmonary regurgitation. PV is not well visualized. Aorta Aortic root size (SInus of Valsalva diameter) is normal . Pericardium No pericardial effusion is visualized. IVC/SVC/PA/PV/Pleural The estimated RA pressure by IVC dynamics 16-20mmHg . Chambers/Structures Left Atrium LA Dimension: 5.76 cm LA Area: 32.03 cm^2 LA Volume: 127.98 ml LA Vol. Index: 61 ml/m^2 Left Ventricle LVIDd: 5.24 cm LV Septum Diastolic: 1.58 cm LV PW Diastolic: 1.45 cm LVEDV Ebach's:224.59 ml LVEDVI: 107 ml/m^2 Aorta Ao Root S of Elicia.: 3.88 cm Doppler/Quantitative Measurements Mitral Valve Mean Velocity: 0.66 m/s Mean Gradient: 2.21 mmHg MV VTI: 22.42 cm MV Otto. Peak: 1.19 m/s LVOT Peak Velocity: 0.86 m/s Peak Gradient: 2.98 mmHg Mean Velocity: 0.53 m/s Mean Gradient: 1.39 mmHg LVOT VTI: 12.15 cm * US Renal with Doppler (09/28/2017 5:33 AM) Specimen Performing Laboratory [facility] FINAL REPORT Exam: Ultrasound transplant kidney Clinical History: Cardiogenic and septic shock with MICHAELLE. Comparison: No prior study for direct comparison. Technique: Renal ultrasound was performed with duplex Doppler. Findings: Both kidneys are echogenic. The right kidney measures 13.8 x 6.3 x 6.4 cm with a cortical thickness of 1.5 cm. The left kidney measures 12.8 x 6.3 x 4.7 cm with cortical thickness of 1.4 cm. There are multiple cysts in the left kidney with the largest in the upper pole measuring 4.4 x 4.3 x 3.7 cm. There is no hydronephrosis, shadowing stone or perinephric fluid. The urinary bladder is collapsed around a Queen catheter balloon. Doppler evaluation of the bilateral kidneys demonstrates patency of the vasculature. There are brisk intra-arterial systolic upstrokes bilaterally. The bilateral main renal vein are patent with normal waveforms. Resistive indices in the upper, mid and lower poles of the right kidney range from 0.6-0.7. Resistive indices in the upper, mid and lower poles of the left kidney range from 0.65-0.69. Impression: Echogenic kidneys in keeping with medical renal disease. No hydronephrosis. Left renal cysts. Normal Doppler evaluation of bilateral kidneys. Signed: Joby Nogueira MD Report Verified Date/Time:09/28/2017 06:05:08 Reading Location: [address] Transitional Reading Room Procedure Note Interface, External Ris In - 09/28/2017 6:07 AM CDT FINAL REPORT Exam: Ultrasound transplant kidney Clinical History: Cardiogenic and septic shock with MICHAELLE. Comparison: No prior study for direct comparison. Technique: Renal ultrasound was performed with duplex Doppler. Findings: Both kidneys are echogenic. The right kidney measures 13.8 x 6.3 x 6.4 cm with a cortical thickness of 1.5 cm. The left kidney measures 12.8 x 6.3 x 4.7 cm with cortical thickness of 1.4 cm. There are multiple cysts in the left kidney with the largest in the upper pole measuring 4.4 x 4.3 x 3.7 cm. There is no hydronephrosis, shadowing stone or perinephric fluid. The urinary bladder is collapsed around a Queen catheter balloon. Doppler evaluation of the bilateral kidneys demonstrates patency of the vasculature. There are brisk intra-arterial systolic upstrokes bilaterally. The bilateral main renal vein are patent with normal waveforms. Resistive indices in the upper, mid and lower poles of the right kidney range from 0.6-0.7. Resistive indices in the upper, mid and lower poles of the left kidney range from 0.65-0.69. Impression: Echogenic kidneys in keeping with medical renal disease. No hydronephrosis. Left renal cysts. Normal Doppler evaluation of bilateral kidneys. Signed: Joby Nogueira MD Report Verified Date/Time: 09/28/2017 06:05:08 Reading Location: [facility] C013T Transitional Reading Room * Blood gas, venous (09/28/2017 3:17 AM) Component Value Ref Range pH, Buck 7.39 7.32 - 7.42 pCO2, Buck 34 (L) 41 - 51 mmHg pO2, Buck 32 25 - 40 mmHg O2 Sat, Buck 61.4 40.0 - 70.0 % HCO3, Buck 20 (L) 21 - 29 mmol/L Base Excess, Buck -4.4 (L) -2.0 - 3.0 mmol/L Patient Temperature 37.0 C FIO2 21.0 % Specimen Performing Laboratory Blood - Central Venous [facility] Line [address] [place] [address] * Blood gas, arterial (09/28/2017 3:15 AM) Component Value Ref Range pH, Arterial 7.41 7.35 - 7.45 pCO2, Arterial 29 (L) 35 - 45 mmHg pO2, Arterial 94 (H) 80 - 90 mmHg O2 Sat, Arterial 97.4 (H) 96.0 - 97.0 % HCO3, Arterial 18 (L) 21 - 29 mmol/L Base Excess, Arterial -5.7 (L) -2.0 - 3.0 mmol/L Patient Temperature 36.8 C FIO2 40.0 % Specimen Performing Laboratory Blood, [place] [address] * Fibrinogen (09/27/2017 11:06 PM) Component Value Ref Range Fibrinogen 804 (H) 225 - 434 mg/dl Specimen Performing Laboratory Blood [place] [id number] * D-dimer (09/27/2017 11:06 PM) Component Value Ref Range D-Dimer, Quant 1.19 (H) <0.50 MG/L FEU Specimen [place] [address] Narrative Intended Use: The D-Dimer Assay can be used to aid in the diagnosis of Deep Vein Thrombosis (DVT) and Pulmonary Embolism Disease (PED). In patients with low pre-test probability, various studies concerning STA Liatest D-dimer test have reported that with a cutoff value of 0.50 MG/L FEU, the Negative Predictive Value (NPV) regarding the exclusion of thrombosis is within 95-100% range. * Reticulocyte count (09/27/2017 11:06 PM) Component Value Ref Range % Retic 1.1 0.5 - 1.8 % Specimen Performing Laboratory [address] [address] * Complement Component C3 (09/27/2017 11:06 PM) Component Value Ref Range C3 Complement 144 82 - 193 mg/dL Specimen Performing Laboratory Blood [address] [address] * Complement Component C4 (09/27/2017 11:06 PM) Component Value Ref Range C4 Complement 33 15 - 57 mg/dL Specimen Performing Laboratory [address] [address] * Lactate dehydrogenase (LDH) (09/27/2017 11:06 PM) Component Value Ref Range LDH 326 (H) 125 - 220 U/L Specimen Performing Laboratory Blood [address] [address] * Haptoglobin (09/27/2017 11:06 PM) Component Value Ref Range Haptoglobin 239 14 - 258 mg/dL Specimen Performing Laboratory [address] [address] * ECG 12 lead (09/27/2017 10:54 PM) Specimen Performing Laboratory GE MUSE Narrative Ventricular Rate 106 BPM Atrial Rate 85 BPM QRS Duration 128 ms Q-T Interval 380 ms QTC Calculation(Bazett) 504 ms R Marland -54 degrees T Marland 128 degrees Wide QRS rhythm Left axis deviation Right bundle branch block Possible Lateral infarct , age undetermined Inferior infarct , age undetermined Abnormal ECG When compared with ECG of 07-JUN-2016 00:35, Wide QRS rhythm has replaced Sinus rhythm Vent. rate has increased BY38 BPM Confirmed by Juan FRYE, EZEKIEL ([id number]) on 10/01/2017 8:30:23 PM Procedure Note Interface, External Ris In - 10/01/2017 8:30 PM CDT Ventricular Rate 106 BPM Atrial Rate 85 BPM QRS Duration 128 ms Q-T Interval 380 ms QTC Calculation(Bazett) 504 ms R Marland -54 degrees T Marland 128 degrees Wide QRS rhythm Left axis deviation Right bundle branch block Possible Lateral infarct , age undetermined Inferior infarct , age undetermined Abnormal ECG When compared with ECG of 07-JUN-2016 00:35, Wide QRS rhythm has replaced Sinus rhythm Vent. rate has increased BY 38 BPM Confirmed by Juan FRYE BASANT ([id number]) on 10/01/2017 8:30:23 PM * XR leg / tibia and fibula 1 view right (09/27/2017 10:53 PM) Specimen Performing Laboratory GE RIS Narrative FINAL REPORT RAD, LEG, TIBIA \\T\\ FIBULA, 1 VIEW, RIGHT CLINICAL INDICATION: "77 y/o man with chronic BLE pain, erythema, possible cellulitis, request evaluation for underlying osteomyelitis" COMPARISON: None TECHNIQUE: AP tibia and fibula IMPRESSION: Total right knee arthroplasty in grossly anatomic alignment without periprosthetic fracture or large periprosthetic lucency. Gross anatomic alignment at the ankle. No acute fracture. Sequelae of remote medial and lateral malleoli are fractures. Subcutaneous edema around the leg which is nonspecific. No x-ray evidence of osteomyelitis. Signed: Aurelia Guillen MD Report Verified Date/Time:09/28/2017 00:11:39 Reading Location: [address] Reading Room Procedure Note Interface, External Ris In - 09/28/2017 12:13 AM CDT FINAL REPORT RAD, LEG, TIBIA \\T\\ FIBULA, 1 VIEW, RIGHT CLINICAL INDICATION: "77 y/o man with chronic BLE pain, erythema, possible cellulitis, request evaluation for underlying osteomyelitis" COMPARISON: None TECHNIQUE: AP tibia and fibula IMPRESSION: Total right knee arthroplasty in grossly anatomic alignment without periprosthetic fracture or large periprosthetic lucency. Gross anatomic alignment at the ankle. No acute fracture. Sequelae of remote medial and lateral malleoli are fractures. Subcutaneous edema around the leg which is nonspecific. No x-ray evidence of osteomyelitis. Signed: Aurelia Guillen MD Report Verified Date/Time: 09/28/2017 00:11:39 Reading Location: [address] Reading Room * XR leg / tibia and fibula 1 view left (09/27/2017 10:38 PM) Specimen Performing Laboratory GE RIS Narrative FINAL REPORT RAD, LEG, TIBIA \\T\\ FIBULA, 1 VIEW, LEFT CLINICAL INDICATION: "77 y/o man with chronic BLE pain, erythema, possible cellulitis, request evaluation for underlying osteomyelitis" COMPARISON: None TECHNIQUE: AP left tibia and fibula IMPRESSION: Cemented total left knee arthroplasty in grossly anatomic alignment without periprosthetic fracture or large region of periprosthetic lucency. Gross anatomic alignment at the ankle. No x-ray evidence of osteomyelitis. Circumferential subcutaneous edema around the leg. Signed: Aurelia Guillen MD Report Verified Date/Time:09/27/2017 23:09:24 Reading Location: [address] Reading Room Procedure Note Interface, External Ris In - 09/27/2017 11:11 PM CDT FINAL REPORT RAD, LEG, TIBIA \\T\\ FIBULA, 1 VIEW, LEFT CLINICAL INDICATION: "77 y/o man with chronic BLE pain, erythema, possible cellulitis, request evaluation for underlying osteomyelitis" COMPARISON: None TECHNIQUE: AP left tibia and fibula IMPRESSION: Cemented total left knee arthroplasty in grossly anatomic alignment without periprosthetic fracture or large region of periprosthetic lucency. Gross anatomic alignment at the ankle. No x-ray evidence of osteomyelitis. Circumferential subcutaneous edema around the leg. Signed: Aurelia Guillen MD Report Verified Date/Time: 09/27/2017 23:09:24 Reading Location: [address] Reading Room * Oxygen saturation, measured (09/27/2017 9:27 PM) Component Value Ref Range O2 Saturation (Measured) 58.2 % Specimen Performing Laboratory [place] [address] Narrative If patient has internal jugular ( IJ) or subclavian central line or PICC line. Draw from distal port. Label as central venous oxygen. * Urinalysis w/ Microscopic (09/27/2017 9:24 PM) Component Value Ref Range Color, UA Light Yellow Clarity, UA Hazy Specific [place], UA 1.008 1.001 - 1.035 pH, UA 5.0 5.0 - 8.0 Protein, UA 20 mg/dL (A) Negative Glucose, UA Negative Negative Ketones, UA Negative Negative Bilirubin, UA Negative Negative Blood, UA Large (A) Negative Nitrite, UA Negative Negative Leukocytes, UA Moderate (A) Negative Urobilinogen, UA 0.2 0.2 - 1.0 mg/dL RBC, UA 79 /HPF WBC, UA 9 /HPF Bacteria, UA Occasional Mucus Rare Hyaline Casts, UA 3 /LPF Specimen Source Specimen Per[place] [address] * Urine culture (09/27/2017 9:23 PM) Component Value Ref Range Result No growth Specimen Performing Laboratory Urine - Urine, [place] [address] * C-Reactive Protein (09/27/2017 9:22 PM) Component Value Ref Range CRP 33.93 (H) 0.00 - 0.50 mg/dL Specimen Performing [place] [address] * Sedimentation rate (09/27/2017 9:22 PM) Component Value Ref Range Sed Rate 107 (H) 0 - 40 mm/HR Specimen Performing [place] [address] * Type and screen, automated (09/27/2017 8:55 PM) Only the most recent of 2 results within the time period is included. Component Value Ref Range ABO/RH AUTOMATED (BEAKER) A POSITIVE Ab Scrn NEGATIVE Specimen Performing [place] [address] * XR hand 3 views right (09/27/2017 8:55 PM) Specimen Performing Laboratory GE RIS Narrative FINAL REPORT RAD, HAND, 3 VIEWS, RIGHT CLINICAL INDICATION: "77 y/o man with ischemic Rt thumb after injury with a hammer 1 month ago, request evaluation for osteomyelitis" COMPARISON: None TECHNIQUE: AP, Oblique and Lateral views were obtained IMPRESSION: Soft tissue swelling along the volar aspect of the distal first ray. No underlying osteolysis or periostitis to suggest osteomyelitis on this exam. MRI can be obtained if there is persistent clinical concern. 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 There is remodeling of the distal radius at the distal radius ulnar joint. Signed: Aurelia Guillen MD Report Verified Date/Time:09/27/2017 21:19:28 Reading Location: [address] Reading Room Procedure Note Interface, External Ris In - 09/27/2017 9:21 PM CDT FINAL REPORT RAD, HAND, 3 VIEWS, RIGHT CLINICAL INDICATION: "77 y/o man with ischemic Rt thumb after injury with a hammer 1 month ago, request evaluation for osteomyelitis" COMPARISON: None TECHNIQUE: AP, Oblique and Lateral views were obtained IMPRESSION: Soft tissue swelling along the volar aspect of the distal first ray. No underlying osteolysis or periostitis to suggest osteomyelitis on this exam. MRI can be obtained if there is persistent clinical concern. 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 There is remodeling of the distal radius at the distal radius ulnar joint. Signed: Aurelia Guillen MD Report Verified Date/Time: 09/27/2017 21:19:28 Reading Location: [address] Reading Room * Blood culture #2 (09/27/2017 8:55 PM) Only the most recent of 2 results within the time period is included. Component Value Ref Range Result No growth in 5 days Specimen Performing Laboratory Blood - Central Venous [facility] Line [address] [place] [id number] * aPTT (09/27/2017 8:55 PM) Component Value Ref Range PTT 61.7 (H) 22.5 - 36.0 seconds Specimen Performing Laboratory Blood [address] [address] * Direct AHG (RONALDO)/Direct Margaux (09/27/2017 8:55 PM) Component Value Ref Range Direct AHG-IGG NEGATIVE Direct [facility]-C3B, C3D NEGATVIE Specimen Performing Laboratory Blood [address] [address] * Hepatic function panel (09/27/2017 8:55 PM) Component Value Ref Range Protein, Total 6.4 6.0 - 8.3 gm/dL Albumin 3.5 3.5 - 5.0 g/dL Total Bilirubin 1.2 0.2 - 1.2 mg/dL Bilirubin, Direct 0.6 (H) 0.1 - 0.5 mg/dL Alkaline Phosphatase 55 40 - 150 U/L AST 81 (H) 5 - 34 U/L ALT 40 6 - 55 U/L Specimen Performing Laboratory [place] [address] * LACERATION REPAIR (08/25/2017 4:20 PM) Jodi Nieves MD 08/25/20174:20 PM Lac Repair Date/Time: 08/01/2017 8:10 PM Performed by: JODI ALMENDAREZ Authorized by: JODI ALMENDAREZ Consent: Verbal consent obtained. Risks and benefits: risks, benefits and alternatives were discussed Consent given by: patient Patient understanding: patient states understanding of the procedure being performed Patient consent: the patient's understanding of the procedure matches consent given Procedure consent: procedure consent matches procedure scheduled Relevant documents: relevant documents present and verified Required items: required blood products, implants, devices, and special equipment available Patient identity confirmed: verbally with patient and arm band Body area: upper extremity Location details: right index finger Laceration length: 1 cm Tendon involvement: none Nerve involvement: none Vascular damage: no Anesthesia: local infiltration Anesthesia: Local Anesthetic: lidocaine 1% without epinephrine Anesthetic total: 3 mL Preparation: Patient was prepped and draped in the usual sterile fashion. Irrigation solution: saline Irrigation method: syringe Amount of cleaning: standard Debridement: none Degree of undermining: none Skin closure: 4-0 Prolene Technique: simple Approximation: close Approximation difficulty: simple Dressinx4 sterile gauze, antibiotic ointment and gauze roll Immediate Post-Procedure Note Date/Time: 08/01/2017 8:39 PM Assistants to the procedure: None Pre-procedure diagnosis: laceration Post-procedure diagnosis: s/p repair Procedures Performed: Lac Repair Specimens removed: None Estimated blood loss (mL): None Complications: None Type of anesthesia: None Grafts or Implants: None after 11/04/2016
== END 2017-09-27 18:55 | disposition short-term general hospital (02) | DRG 871 ==
LOC: ER 00:52 → ERHOLD 06:53 → UNDOADMIN 06:58
PROVIDERS: ADMIT Internal Medicine; ATTEND Internal Medicine
PROC: 30233N1 Transfusion of Nonautologous Red Blood Cells into Peripheral Vein, Percutaneous Approach (ICD-10-PCS; principal; 2017-09-27)
DX: A41.9 Sepsis, unspecified organism (principal); R65.21 Severe sepsis with septic shock; I50.23 Acute on chronic systolic (congestive) heart failure; N18.6 End stage renal disease; D61.3 Idiopathic aplastic anemia; A48.0 Gas gangrene; L03.116 Cellulitis of left lower limb; L03.115 Cellulitis of right lower limb; I13.2 Hypertensive heart and chronic kidney disease with heart failure and with stage 5 chronic kidney disease, or end stage renal disease; D62 Acute posthemorrhagic anemia; N17.9 Acute kidney failure, unspecified; I25.10 Atherosclerotic heart disease of native coronary artery without angina pectoris; I25.2 Old myocardial infarction; N40.0 Benign prostatic hyperplasia without lower urinary tract symptoms; E78.00 Pure hypercholesterolemia, unspecified; Z95.1 Presence of aortocoronary bypass graft; Z95.2 Presence of prosthetic heart valve; I48.91 Unspecified atrial fibrillation; M06.9 Rheumatoid arthritis, unspecified; Z95.810 Presence of automatic (implantable) cardiac defibrillator
CPT/HCPCS: 36415; 51700; 70450; 71045; 80053; 81001; 82550; 82553; 83605; 84484; 85014; 85018; 85025; 85610; 85730; 86850; 86900; 86920; 87040; 93005; 93306; 96360; 99285; J0692; J1720; J1940; J3370; J7030; J7050; P9016